=== PATIENT | female | born 1995 | race African-American/Black ===

== ENCOUNTER 2022-10-24 20:04 | Emergency (ER) | payer MEDICAID ==
[~2022-10-24] VITALS: Ht 172.7 cm; Wt 59.0 kg
[2022-10-24 20:36] VITALS: BP 115/79; PULSE 100; RESP 20; TEMP 98.2; O2SAT 100
[2022-10-24 21:17] LABS: BASOPHILS % 0.4 % (0.0-2.0); DIFFERENTIAL COMMENT 0; EOSINOPHILS % 2.1 % (0.0-5.0); HEMATOCRIT. 39.4 % (36.0-48.0); HEMOGLOBIN. 12.8 g/dL (12.0-16.0); LYMPHOCYTES % 42.4 % (20.0-50.0); MEAN CORPUSCULAR HEMOGLOBIN 27.5 pg (28.0-32.0); MEAN CORPUSCULAR HGB CONC 32.4 g/dL (31.0-37.0); MEAN CORPUSCULAR VOLUME 84.9 fL (81.0-99.0); MEAN PLATELET VOLUME 10.3 fl (7.4-10.4); MONOCYTES % 10.8 % (2.0-8.0); NEUTROPHILS % 44.3 % (40.0-76.0); PLATELET 200 x1000/uL (130-400); RED BLOOD CELL COUNT 4.64 mill/uL (4.2-5.4); RED CELL DISTRIBUTION WIDTH 14.1 % (11.6-14.6); WHITE BLOOD COUNT 5.4 x1000/uL (4.5-11.0)
[2022-10-24 21:24] LABS: PROTHROMBIN TIME 10.7 sec (9.6-11.0)
[2022-10-24 21:31] LABS: CHLORIDE 109 mEq/L (98-107); INDEX HEMOLYSI 1 (1-3); INDEX ICTERIC 1 (1-4); INDEX LIPEMIC 1 (1-3); POTASSIUM 3.8 mEq/L (3.5-5.1); SODIUM 139 mEq/L (136-145)
[2022-10-24 21:42] LABS: ALANINE AMINOTRANSFERASE 26 IU/L (13-61); ALBUMIN 3.8 g/dL (3.4-5.0); ASPARTATE AMINOTRANSFERASE 18 IU/L (15-37); BILIRUBIN TOTAL 0.7 mg/dL (0.1-1.0); CALCIUM 8.7 mg/dL (8.5-10.1); CARBON DIOXIDE 28 mEq/L (21-32); CREATININE 0.7 mg/dL (0.6-1.3); GLUCOSE 77 mg/dL (70-105); NT PRO B-TYPE NATRIURETIC PEP 40 pg/mL (5-125); PROTEIN TOTAL 7.6 g/dL (6.0-8.3); TROPONIN I HIGH SENSITIVITY 4 ng/L (<54); UREA NITROGEN BLOOD 13 mg/dL (7-21)
[2022-10-24] MEDS ORDERED: PREDNISONE 20MG TABLET PO ONE (22:45)
[2022-10-24] MEDS ORDERED: P50 MT (22:58)
== END 2022-10-24 23:16 | disposition home or self-care (01) ==
LOC: ER 21:20
DX: J45.901 Unspecified asthma with (acute) exacerbation (principal)
CPT/HCPCS: 99285; 71045; 80053; 83880; 85025; 85610; 84484; 36415; 93005; J7512